=== PATIENT | female | born 1975 | race Caucasian/White ===

== ENCOUNTER 2021-02-03 00:06 | Emergency (ER) | payer BC ==
[~2021-02-03] VITALS: Ht 170.2 cm; Wt 77.1 kg
[2021-02-03 00:17] VITALS: BP_SYST 121
[2021-02-03] MEDS ORDERED: MEDROXYPROGESTERONE ACET IM ONE (01:30)
[2021-02-03] MEDS ORDERED: KETOROLAC TROMETHAMINE 60 MG/2 ML VIAL IM ONE ×2 (01:30→02:02)
[2021-02-03 04:21] LABS: BASOPHILS # (AUTO) 0.1 K/uL (0.0-0.2); BASOPHILS % (AUTO) 0.4 % (0.0-2.0); EOSINOPHILS # (AUTO) 0.3 K/uL (0.0-0.4); EOSINOPHILS % (AUTO) 2.9 % (0.0-4.0); HEMATOCRIT 35.6 % (36-48); HEMOGLOBIN 11.9 g/dL (12.0-16.0); LYMPHOCYTES # (AUTO) 1.9 K/uL (1.0-5.5); LYMPHOCYTES % (AUTO) 16.5 % (20.5-51.5); MEAN CORPUSCULAR HEMOGLOBIN 32 pg (27-31); MEAN CORPUSCULAR HGB CONC 34 % (32-36); MEAN CORPUSCULAR VOLUME 95 fL (79.0-98.0); MONOCYTES # (AUTO) 0.7 K/uL (0.0-1.0); MONOCYTES % (AUTO) 5.6 % (1.7-9.3); NEUTROPHILS # (AUTO) 8.8 K/uL (1.8-7.7); NEUTROPHILS % (AUTO) 74.6 % (40.0-70.0); PLATELET COUNT (AUTO) 282 K/uL (130-430); RED BLOOD CELL COUNT(AUTO) 3.76 MIL/uL (4.2-6.2); RED CELL DISTRIBUTION WIDTH 12.5 % (9.0-15.0); WHITE BLOOD COUNT (AUTO) 11.8 K/uL (4.8-10.8)
[2021-02-03 04:29] LABS: BILIRUBIN,URINE NEGATIVE (NEGATIVE); BLOOD, URINE 3+ (NEGATIVE); CLARITY/URINE CLOUDY (CLEAR); COLOR,URINE RED (YELLOW); GLUCOSE,URINE NEGATIVE (NEGATIVE); KETONES,URINE TRACE (NEGATIVE); LEUKOCYTE ESTERASE ,URINE TRACE (NEGATIVE); NITRITE, URINE POSITIVE (NEGATIVE); PH,URINE 5.5 (5.0-8.0); PROTEIN URINE 3+ (NEGATIVE)
[2021-02-03 04:39] LABS: CREATININE 0.78 mg/dL (0.55-1.30); POTASSIUM 3.8 mmol/L (3.5-5.1)
[2021-02-03] MEDS ORDERED: cefTRIAXone 1 GM in D5W 50 ML IV ONE (04:45)
[2021-02-03 04:50] LABS: ALBUMIN 3.2 g/dL (3.4-4.8); TOTAL BILIRUBIN 0.6 mg/dL (0.0-1.0)
[2021-02-03 05:02] LABS: BACTERIA,URINE MODERATE /HPF (None Seen); RBC,URINE >100 /HPF (0-3)
[2021-02-03] MEDS ORDERED: NAPR-690 PO (06:07)
[2021-02-03] MEDS ORDERED: MEDR10TA3 PO (06:07)
[2021-02-03] MEDS ORDERED: CEPH500C2 PO (06:08)
[2021-02-03] MEDS ORDERED: cefTRIAXone 1 GM VIAL ONE (06:27)
[2021-02-03 06:30] VITALS: BP_SYST 121
[2021-02-03] MEDS ORDERED: cefTRIAXone 1 GM VIAL IM ONE (06:30)
== END 2021-02-03 06:30 | disposition home or self-care (01) ==
LOC: SED 00:06
DX: N94.6 Dysmenorrhea, unspecified (principal); N92.0 Excessive and frequent menstruation with regular cycle; N39.0 Urinary tract infection, site not specified; Z79.899 Other long term (current) drug therapy
CPT/HCPCS: 36415; 74176; 76376; 76830; 76857; 80053; 81000; 81025; 84702; 85025; 87086; 96372; 99285; J0696; J1885; J1050